=== PATIENT | female | born 1995 | race American Indian/Alaskan Native ===

== ENCOUNTER 2019-02-08 04:33 | Emergency (ER) | payer MEDICAID, OTHER ==
--- NOTE | 2019-02-08 05:24 | EDM.PDOC ---
ED HPI GENERAL MEDICAL PROBLEM - General Chief Complaint: Respiratory Problem Stated Complaint: COUGH Time Seen by Provider: 02/08/19 05:18 Source of Information: Reports: Patient, RN History Limitations: Reports: Altered Mental Status - History of Present Illness INITIAL COMMENTS - FREE TEXT/NARRATIVE: This child told the nurse that she had been smoking marijuana and methamphetamine. She went to sleep but she had a dry cough and so her friends woke her up and made her come to the emergency department. She walked here. She told the nurse that she would just sleep in the room until I came to see her. - Related Data Allergies Allergy/AdvReac Type Severity Reaction Status Date / Time baclofen Allergy Vomiting Verified 02/08/19 04:57 Home Meds: Home Meds NK [No Known Home Meds] 02/08/19 [History] Past Medical History - Past Health History Medical/Surgical History: Denies Medical/Surgical History [employer] History: Reports: Social & Family History - Tobacco Use Smoking Status *Q: Current Every Day Smoker Years of Tobacco use: 10 Packs/Tins Daily: 0.5 - Alcohol Use Days Per Week of Alcohol Use: 1 Number of Drinks Per Day: 5 Total Drinks Per Week: 5 - Recreational Drug Use Recreational Drug Use: Yes Recreational Drug Type: Reports: Marijuana/Hashish, Methamphetamine Recreational Drug Use Frequency: Daily ED ROS GENERAL - Review of Systems Review Of Systems: Unable To Obtain ED EXAM, GENERAL - Physical Exam Exam: See Below Exam Limited By: Altered Mental Status General Appearance: WD/WN, No Apparent Distress, Other (Very sleepy appearing. She was asleep and didn't arouse to voice but did arouse to physical stimulation E poking her with a clipboard. She awakens she sits up but if she goes back to sleep very promptly. Head and neck shows) Eye Exam: Bilateral Eye: Normal Inspection Ears: Normal External Exam Nose: Normal Inspection Throat/Mouth: Normal Oropharynx Head: Atraumatic Neck: Normal Inspection Respiratory/Chest: Lungs Clear, Other (No coughing) Cardiovascular: Regular Rate, Rhythm, No Murmur Extremities: Normal Inspection Neurological: Other (Very sleepy) Course - Vital Signs Last Recorded V/S: Last Vital Signs Temp 36.2 C 02/08/19 04:57 Pulse 99 02/08/19 04:57 Resp 16 02/08/19 04:57 BP 125/77 02/08/19 04:57 Pulse Ox 95 02/08/19 04:57 - Re-Assessments/Exams Free Text/Narrative Re-Assessment/Exam: 02/08/19 05:23 This patient does not need any treatment. It seems that maybe she just needed a place to sleep Departure - Departure Time of Disposition: 05:23 Disposition: Home, Self-Care 01 Condition: Fair Clinical Impression: Drug abuse, History of cough - Discharge Information Referrals: PCP,None [Primary Care Provider] - Additional Instructions: Avoid smoking marijuana and meth
== END 2019-02-08 05:35 | disposition home or self-care (01) ==
LOC: JP.ED 04:33
DX: F15.10 Other stimulant abuse, uncomplicated (principal); F12.10 Cannabis abuse, uncomplicated; R05 Cough; F17.210 Nicotine dependence, cigarettes, uncomplicated
CPT/HCPCS: 99282